=== PATIENT | female | born 2000 | race African-American/Black ===

== ENCOUNTER 2018-12-10 00:17 | Emergency (ER) | payer OTHER ==
[~2018-12-10] VITALS: Ht 170.2 cm; Wt 87.1 kg
[2018-12-10 00:21] VITALS: Ht 170.2 cm; Wt 87.1 kg
[2018-12-10 02:20] VITALS: BP 119/71
== END 2018-12-10 02:20 | disposition home or self-care (01) ==
LOC: ED 00:17
DX: N39.0 Urinary tract infection, site not specified (principal)
CPT/HCPCS: 87491; 87591

== ENCOUNTER 2018-12-22 12:14 | Emergency (ER) | payer OTHER ==
[~2018-12-22] VITALS: Ht 170.2 cm; Wt 88.7 kg
[2018-12-22 12:28] VITALS: Ht 170.2 cm; Wt 88.7 kg
[2018-12-22 14:31] VITALS: BP 128/76
[2018-12-24 05:08] LABS: RAPID PLASMA REAGIN Non Reactive (Non Reactive)
== END 2018-12-22 14:31 | disposition home or self-care (01) ==
LOC: ED 12:14
PROVIDERS: Emergency Medicine
DX: L73.1 Pseudofolliculitis barbae (principal)
CPT/HCPCS: 87491; 87591; J0696

== ENCOUNTER 2019-02-02 11:15 | Emergency (ER) | payer OTHER ==
[~2019-02-02] VITALS: Ht 170.2 cm; Wt 81.2 kg
[2019-02-02 11:20] VITALS: Ht 170.2 cm; Wt 81.2 kg
[2019-02-02 14:01] VITALS: BP 121/75
== END 2019-02-02 14:01 | disposition home or self-care (01) ==
LOC: ED 11:15
DX: L73.9 Follicular disorder, unspecified (principal)

== ENCOUNTER 2019-05-01 07:16 | Emergency (ER) | payer OTHER ==
[~2019-05-01] VITALS: Ht 167.6 cm; Wt 83.9 kg
[2019-05-01 07:53] VITALS: Ht 167.6 cm; Wt 83.9 kg
[2019-05-01 08:42] VITALS: BP 106/66
== END 2019-05-01 08:42 | disposition home or self-care (01) ==
LOC: ED 07:16
DX: J02.9 Acute pharyngitis, unspecified (principal); J20.9 Acute bronchitis, unspecified; J45.909 Unspecified asthma, uncomplicated

== ENCOUNTER 2019-05-02 23:58 | Emergency (ER) | payer OTHER ==
[~2019-05-02] VITALS: Ht 170.2 cm; Wt 85.3 kg
[2019-05-03 00:06] VITALS: BP 116/71; Ht 170.2 cm; Wt 85.3 kg
== END 2019-05-03 03:51 | disposition home or self-care (01) ==
LOC: ED 23:58
DX: J40 Bronchitis, not specified as acute or chronic (principal); J02.9 Acute pharyngitis, unspecified

== ENCOUNTER 2019-11-28 22:03 | Emergency (ER) | payer OTHER ==
[~2019-11-28] VITALS: Ht 170.2 cm; Wt 86.6 kg
[2019-11-28 22:13] VITALS: Ht 170.2 cm; Wt 86.6 kg
[2019-11-28 23:17] LABS: BASOPHIL % 1.8 % (0-2); PLATELET COUNT 317 x10^3mcL (130-400); RED CELL DISTRIBUTION WIDTH 12.1 % (11.5-14.5)
[2019-11-28 23:30] LABS: CALCIUM 9.4 mg/dL (8.5-10.1); CARBON DIOXIDE 29.7 mmol/L (21-32); CHLORIDE SERUM 102 mmol/L (98-107); GFR1 > 60 mL/min; GLUCOSE SERUM 106 mg/dL (74-106); POTASSIUM SERUM 3.2 mmol/L (3.5-5.1); SODIUM SERUM 136 mmol/L (136-145)
[2019-11-28 23:35] LABS: ALBUMIN 4.1 g/dL (3.4-5.0); ALKALINE PHOSPHATASE 54 U/L (46-116); ALT/SGPT 21 U/L (14-59); AST/SGOT 11 U/L (15-37); BILIRUBIN TOTAL 0.4 mg/dL (0.20-1.00)
[2019-11-29 01:31] VITALS: BP 120/71
== END 2019-11-29 01:31 | disposition home or self-care (01) ==
LOC: ED 22:03
PROVIDERS: Emergency Medicine
DX: O26.891 Other specified pregnancy related conditions, first trimester (principal); R10.30 Lower abdominal pain, unspecified; R11.0 Nausea
CPT/HCPCS: 87491; 87591; Q0092